=== PATIENT | male | born 1970 | race Two or more races ===

== ENCOUNTER 2018-10-18 10:31 | Emergency (ER) | payer OTHER ==
[2018-10-18 10:37] VITALS: BP 130/71
--- NOTE | 2018-10-18 10:45 | EDPHY ---
H & P Time Seen by Provider: 10/18/18 10:44 HPI/ROS: CHIEF COMPLAINT: Right hand laceration HISTORY OF PRESENT ILLNESS: 48-year-old [id number] male with out-of- date tetanus was at work carrying a piece of metal framing sustained accidental laceration to the right 3rd MCP dorsal aspect when this area of his hand rubbed against the metal edge of the framing. No paresthesia. No sensory motor deficit. No glass or other fractured components. Occurred shortly prior to arrival. Tetanus is out-of-date although he has had tetanus vaccination in the past. PRIMARY CARE PROVIDER: Worker's compensation REVIEW OF SYSTEMS: 10 systems reviewed and are negative with exception of illness mentioned in the history of present illness PHYSICAL EXAM (Prior to examination, patient consented to physical exam, hands were washed and my usual and customary physical exam procedures followed) 1) GENERAL: Well-developed, well-nourished, alert and oriented. Appears to be in no acute distress. 2) HEAD: Normocephalic 3) HEENT: sclera anicteric 4) LUNGS: Breathing comfortably. 5) SKIN: Right hand: 3rd MCP dorsal aspect 3 cm linear superficial laceration. I am able to visualize the extensor tendon which appears to be intact. 6) MUSCULOSKELETAL: Able to hold extension against resistance with no deficits. 7) NEUROLOGIC: Full sensation two-point discrimination intact distally Smoking Status: Current some day smoker Constitutional: Initial Vital Signs Temperature (C) 36.6 C 10/18/18 10:35 Heart Rate 77 10/18/18 10:35 Respiratory Rate 18 10/18/18 10:35 Blood Pressure 130/71 H 10/18/18 10:35 O2 Sat (%) 97 10/18/18 10:35 O2 Delivery Mode Room Air Allergies/Adverse Reactions: No Known Allergies Allergy (Unverified 10/18/18 10:37) Home Medications: Medication Instructions Recorded NK [No Known Home Meds] 10/18/18 MDM/Departure - MDM Procedures: Procedure: Laceration repair. I explained the indications, risks and benefits for both laceration repair and anesthetic administration. Verbal consent was obtained from the patient and parent. The laceration on the right dorsal hand was anesthetized using 0.5% bupivicaine without epinephrine. After anesthetic administered the patient was observed for a period of time and had no apparent adverse effects. The wound was cleaned, prepped, draped in normal sterile fashion and explored to its base. No foreign body seen, no foreign bodies palpated. There were no deep structures involved. No tendon injury was identified. The wound was repaired with 6 simple interrupted 5 O Prolene suture . The wound repair was simple. Bulky dressing applied by ER staff. The procedure was performed by myself. Patient has been informed that scarring will occur, although efforts have been made to minimize this. Medications Given: Discontinued Medications Diphtheria/Tetanus/Acell Pertussis (Boostrix) 0.5 ml IM .ONCE ONE Stop: 10/18/18 10:58 Last Admin: 10/18/18 11:04 Dose: 0.5 ml ED Course/Re-evaluation: Care of patient under supervision of primary supervising physician Dr Johansen . - Depart Disposition: Home, Routine, Self-Care Clinical Impression: Laceration of right hand Qualifiers: Encounter type: initial encounter Foreign body presence: without foreign body Qualified Code(s): S61.411A - Laceration without foreign body of right hand, initial encounter Condition: Good Instructions: Laceration (ED) Additional Instructions: Return to the ER if you develop redness, swelling, discharge, warmth to the wound, red streaks going up your arm or leg, or any other symptoms that concern you. Regresar a la elvis de Emergencia si desarollas rick, marcos, calor al area de la herida, anup dunn subiendo tu brazo u pierna, u otra sintoma que te preocupa. Referrals: Return, to the ER in 10 days for suture removal [Other] - As per Instructions Print Language: [place]
[2018-10-18] MEDS ORDERED: TDAP ADULT 0.5 ML INJ (BOOSTRIX) IM ONE (10:57)
== END 2018-10-18 11:28 | disposition home or self-care (01) ==
PROC: 0HQFXZZ Repair Right Hand Skin, External Approach (ICD-10-PCS; principal; 2018-10-18)
DX: S61.411A Laceration without foreign body of right hand, initial encounter (principal); W26.8XXA Contact with other sharp object(s), not elsewhere classified, initial encounter; Y92.89 Other specified places as the place of occurrence of the external cause; Y93.9 Activity, unspecified; Y99.0 Civilian activity done for income or pay; Z23 Encounter for immunization